=== PATIENT | female | born 1930 | race Caucasian/White ===

== ENCOUNTER 2016-09-09 06:00 | Day surgery (SDC) | payer BC ==
--- NOTE | ~2016-09-09 | EGD ---
EGD REPORT [facility] [address] [place] [id number] NAME: MARY ELENA : [birth year] STATUS : REG [facility] PAT#: [id number] AGE: 86 ADM/REG DATE : 09/09/16 MR#: [id number] REPORT SERV DATE: 09/09/16 DICTATED BY: JENNIFER RUST III DATE: 09/09/16 REPORT STATUS : Draft TRANSCRIBED BY: [facility] DATE: 09/09/16 End[facility] Center Patient Name: Mary Elena Date of : 1930 Attending MD: JENNIFER RUST III, MD Procedure Date No Time: 09/09/2016 Procedure: Colonoscopy Indications: High risk colon cancer surveillance: Personal history of colon cancer Medicines: Propofol per Anesthesia Complications: No immediate complications. Procedure: After I obtained informed consent, the scope was passed under direct vision. Throughout the procedure, the patient's blood pressure, pulse, and oxygen saturations were monitored continuously. The PCF [id number] was introduced through the anus and advanced to the terminal ileum. The colonoscopy was performed with ease. The patient tolerated the procedure well. The quality of the bowel preparation was good. Findings: Multiple diverticula were found in the sigmoid colon. Internal hemorrhoids were found during retroflexion. There was evidence of a prior end-to-side ileo-colonic anastomosis in the ascending colon and in the cecum. This was patent. This was characterized by healthy appearing mucosa. This was traversed. The terminal ileum appeared normal. Impression: - Diverticulosis in the sigmoid colon. - Internal hemorrhoids. - Patent end-to-side ileo-colonic anastomosis. - The examined portion of the ileum was normal. Recommendation: - Patient has a contact number available for emergencies. The signs and symptoms of potential delayed complications were discussed with the patient. Return to normal activities tomorrow. Written discharge instructions were provided to the patient. - Discharge patient to home. - Continue present medications. - Repeat colonoscopy in 3 years for surveillance. Procedure Code(s): --- Professional --- G0105, Colorectal cancer screening; colonoscopy on individual at high risk EGD REPORT [facility] [address] [id number] NAME: MARY ELENA : [birth year] STATUS : REG [facility] PAT#: [id number] AGE: 86 ADM/REG DATE : 09/09/16 MR#: [id number] REPORT SERV DATE: 09/09/16 DICTATED BY: JENNIFER RUST III DATE: 09/09/16 REPORT STATUS : Draft TRANSCRIBED BY: [employer] DATE: 09/09/16 Diagnosis Code(s): --- Professional --- K64.8, Other hemorrhoids K57.30, Diverticulosis of large intestine without perforation or abscess without bleeding Z98.0, Intestinal bypass and anastomosis status Z85.038, Personal history of other malignant neoplasm of large intestine CPT copyright 2013 [employer]. All rights reserved. The codes documented in this report are preliminary and upon die storage clerk review may be revised to meet current compliance requirements. JENNIFER RUST III, MD 09/09/2016 8:42 AM This report has been signed electronically. Number of Addenda: 0 Note Initiated On: 09/09/2016 8:24 AM Scope Withdrawal Time 0 hours 7 minutes 34 seconds [id number] [address]
[~2016-09-09 06:00] MED LIST: CIP5 PO; CYANO1000T PO; HEMOCYTE324 MG PO; IRON PO; KAPIDEX60 MG PO; MIRALAX POWDER1 PKT PO; PT TAKES NO MEDS
== END 2016-09-09 23:59 | disposition home or self-care (01) ==
LOC: DMU 06:00
PROVIDERS: Internal Medicine Gastroenterology
PROC: 0DJD8ZZ Inspection of Lower Intestinal Tract, Via Natural or Artificial Opening Endoscopic (ICD-10-PCS; principal; 2016-09-09 08:30)
DX: Z12.11 Encounter for screening for malignant neoplasm of colon (principal); K64.8 Other hemorrhoids; K57.30 Diverticulosis of large intestine without perforation or abscess without bleeding; M19.90 Unspecified osteoarthritis, unspecified site; H91.90 Unspecified hearing loss, unspecified ear; F41.9 Anxiety disorder, unspecified; R35.0 Frequency of micturition; R25.1 Tremor, unspecified; Z78.0 Asymptomatic menopausal state; Z98.0 Intestinal bypass and anastomosis status; Z98.41 Cataract extraction status, right eye; Z98.42 Cataract extraction status, left eye; Z96.1 Presence of intraocular lens; Z90.49 Acquired absence of other specified parts of digestive tract; Z88.0 Allergy status to penicillin; Z79.899 Other long term (current) drug therapy; Z85.038 Personal history of other malignant neoplasm of large intestine